=== PATIENT | female | born 1970 | race Caucasian/White ===

== ENCOUNTER 2022-12-26 13:36 | Outpatient (CLI) | payer BC, SELFPAY ==
[2022-12-26 15:31] VITALS: BP 127/73; PULSE 100
--- NOTE | 2022-12-26 16:24 | W.PM.STED ---
Stress Test Note Date Date Seen: 12/26/22 Date of test: 12/26/22 Providers Primary care provider: Jordan Cohen Stress test physician: Phylicia Orozco Stress Test Note Stress test ordered: Stress Echo Indication for test: Chest pain Stress test medicine: None Results discussion: Resting EKG: Sinus rhythm, 69 beats per minute. Poor R-wave progression V1 and V2. Resting blood pressure: 120/77. Stress test: Patient is exercised on the treadmill following standard Nikolas protocol. Patient was able to exercise 11 minutes, terminated due to reaching heart rate and and exercise capacity. She achieved 12.1 Mets at this level. She had a maximum heart rate of 170 beats per minute which was 119% of a calculated target heart rate of 149. She had a maximum blood pressure of 162/84, rate pressure product 19,602. She had some mild shortness of breath which was not unexpected at this level of exercise. No arrhythmia, no ischemia noted. Echo images pending to couple this for a full formal diagnostic. Impression: Subjectively negative, objectively negative EKG portion of this stress echo. Follow up suggested: Patient is discharged to home in stable condition. She is to wait the reading of the echo images and get a full formal report from her ordering physician.
== END 2022-12-26 13:37 | disposition home or self-care (01) ==
LOC: STRESS 13:36
PROVIDERS: PCP Family Medicine; Visit Provider Family Medicine
DX: R07.89 Other chest pain (principal)
CPT/HCPCS: 93016; 93325; 93351